=== PATIENT | male | born 1955 | race Caucasian/White ===

== ENCOUNTER 2020-01-13 17:44 | Inpatient (IN) | payer MEDICARE ==
[~2020-01-13] VITALS: Ht 182.9 cm; Wt 94.7 kg
[~2020-01-13 17:44] MED LIST: AMLO-150 PO; ASPI-515 PO; LISI-170 PO; OMEG1CAP25 PO; [UNRECOGNIZED DRUG - CODE] PO
--- NOTE | 2020-01-13 19:00 | NUR ---
THIS IS A 64 YO MALE COMING IN FOR 2ND & 3RD LEFT TOES "TURNED PURPLE YESTERDAY ALL OF A SUDDEN", SENT BY PCP FOR R/O DVT, DENIES PAIN OR INJURY. CSM INTACT, NON TENDER TO PALPATION. NO OTHER COMPLAINTS AT THIS TIME ALL MONITORING IN PLACE, VSS, NADN. CALL LIGHT IN REACH.
--- NOTE | 2020-01-13 20:02 | NUR ---
PATIENT RESTING ON GURNEY, RESPIRATIONS EVEN AND UNLABORED, VSS, NADN. AWAING MD ORDERS
--- NOTE | 2020-01-13 20:49 | NUR ---
ERP IN ROOM FOR EVAL
--- NOTE | 2020-01-13 22:00 | NUR ---
PATIENT RESTING ON GURNEY, RESPIRATIONS EVEN AND UNLABORED, VSS, NADN. AWAITING ERP ORDERS
[2020-01-13 22:25] LABS: BASOPHILS # (AUTO) 0.02 x10^3/uL (0-0.1); BASOPHILS % (AUTO) 0 % (0-1); EOSINOPHILS # (AUTO) 0.29 x10^3/uL (0-0.4); EOSINOPHILS % (AUTO) 4 % (1-7); LYMPHOCYTES # (AUTO) 2.58 x10^3/uL (1-3.4); LYMPHOCYTES % (AUTO) 32 % (22-44); MD NO; MEAN CORPUSCULAR HEMOGLOBIN 33.1 pg (27.5-34.5); MEAN CORPUSCULAR HGB CONC 33.8 g/dL (33.2-36.2); MEAN CORPUSCULAR VOLUME 97.8 fL (81-97); MEAN PLATELET VOLUME 7.3 fL (7.4-10.4); MONOCYTES # (AUTO) 0.65 x10^3/uL (0.2-0.8); MONOCYTES % (AUTO) 8 % (2-9); NEUTROPHILS # (AUTO) 4.63 x10^3/uL (1.8-6.8); NEUTROPHILS % (AUTO) 57 % (42-75); PLATELET COUNT 222 x10^3/uL (130-400); RED BLOOD COUNT 4.73 x10^6/uL (4.38-5.82); RED CELL DISTRIBUTION WIDTH 13.8 % (9.4-14.8)
[2020-01-13] MEDS ORDERED: BISACODYL 10 MG SUPP PR PRN (22:30)
[2020-01-13] MEDS ORDERED: ACETAMINOPHEN 325 MG TABLET PO PRN (22:30)
[2020-01-13] MEDS ORDERED: ONDANSETRON ODT 4 MG PO PRN (22:30)
[2020-01-13] MEDS ORDERED: POLYETHYLENE GLYCOL 17 GM PACKET PO PRN (22:30)
[2020-01-13] MEDS ORDERED: HEPARIN 5,000 UNITS/ML, 1ML IV ONE (22:30)
[2020-01-13 22:38] LABS: ALANINE AMINOTRANSFERASE 40 U/L (12-78); ALBUMIN 4.2 g/dL (3.4-5.0); ANION GAP 7 mmol/L (5-15); CALCIUM 8.7 mg/dL (8.5-10.1); CHLORIDE 110 mmol/L (98-107); CREATININE 1.14 mg/dL (0.7-1.3)
[2020-01-13 22:43] LABS: ALKALINE PHOSPHATASE 68 U/L (45-117); BILIRUBIN,TOTAL 0.9 mg/dL (0.2-1.0); TOTAL PROTEIN 7.3 g/dL (6.4-8.2); TROPONIN I < 0.015 ng/mL (0.000-0.045)
[2020-01-13 22:48] LABS: D-DIMER 0.38 ug/mlFEU (0.00-0.52); INTERNATIONAL NORMALIZED RATIO 0.94 (0.93-1.1); PROTHROMBIN TIME 9.7 Seconds (9.6-11.5)
[2020-01-13] MEDS ORDERED: HEPARIN 5,000 UNITS/ML, 1ML ONE (23:28)
[2020-01-13] MEDS ORDERED: HEPARIN 25,000 UNITS/250ML PMX 250 ML ONE (23:28)
[2020-01-13] MEDS ORDERED: OMNIPAQUE 350 MG/ML, 100ML BOTTLE ONE (23:29)
[2020-01-13] MEDS: HEPARIN 25,000 UNITS/250ML PMX 250 ML IV PRN (23:59)
--- NOTE | 2020-01-14 00:12 | NUR ---
PATIENT MOVED TO HOSPITAL BED. HEPARIN STARTED, VERIFIED WITH LATOYA HELLER.
--- NOTE | 2020-01-14 01:23 | NUR ---
PATIENT SLEEPING, RESPIRATIONS EVEN AND UNLABORED. VSMAYA Beltran. CALL LIGHT IN REACH
--- NOTE | 2020-01-14 02:20 | NUR ---
PATIENT SLEEPING, RESPIRATIONS EVEN AND UNLABORED. VSMAYA Beltran. CALL LIGHT IN REACH
--- NOTE | 2020-01-14 03:04 | NUR ---
RECEIVED REPORT FROM DIEGO KLEIN
--- NOTE | 2020-01-14 06:06 | NUR ---
pt transferred to ED room 27 without issue, pt ambulated to restroom independently, pt now resting comfortably in hospital bed watching tv, KIRK, CORYN
[2020-01-14 06:13] LABS: ANION GAP 6 mmol/L (5-15); CALCIUM 8.3 mg/dL (8.5-10.1); CHLORIDE 111 mmol/L (98-107); CREATININE 1.01 mg/dL (0.7-1.3)
[2020-01-14 06:22] LABS: BASOPHILS # (AUTO) 0.03 x10^3/uL (0-0.1); BASOPHILS % (AUTO) 1 % (0-1); EOSINOPHILS # (AUTO) 0.22 x10^3/uL (0-0.4); EOSINOPHILS % (AUTO) 3 % (1-7); LYMPHOCYTES # (AUTO) 2.22 x10^3/uL (1-3.4); LYMPHOCYTES % (AUTO) 34 % (22-44); MD NO; MEAN CORPUSCULAR HEMOGLOBIN 33.2 pg (27.5-34.5); MEAN CORPUSCULAR HGB CONC 33.8 g/dL (33.2-36.2); MEAN CORPUSCULAR VOLUME 98.4 fL (81-97); MEAN PLATELET VOLUME 7.3 fL (7.4-10.4); MONOCYTES # (AUTO) 0.43 x10^3/uL (0.2-0.8); MONOCYTES % (AUTO) 7 % (2-9); NEUTROPHILS % (AUTO) 55 % (42-75); PLATELET COUNT 194 x10^3/uL (130-400); RED BLOOD COUNT 4.62 x10^6/uL (4.38-5.82)
[2020-01-14] MEDS ORDERED: HEPARIN 5,000 UNITS/ML, 1ML ONE (06:34)
[2020-01-14] MEDS: HEPARIN 5,000 UNITS/ML, 1ML IV PRN ×2 (06:40→13:36)
[2020-01-14] MEDS: HEPARIN 25,000 UNITS/250ML PMX 250 ML IV PRN (06:41)
--- NOTE | 2020-01-14 07:10 | NUR ---
Report received from Angeles KLEIN. pt resting comfortably at this time.
--- NOTE | 2020-01-14 07:23 | NUR ---
Family at bedside, updated about POC.
--- NOTE | 2020-01-14 07:35 | NUR ---
Report given to Giovanny KLEIN
--- NOTE | 2020-01-14 08:19 | NUR ---
pt transported to admitting floor via hospital bed. pt left in no distress, heparin ggt running. Family updated regarding visiting hours.
[2020-01-14 08:39] VITALS: BP 112/65
[2020-01-14 08:58] VITALS: BP 112/65
[2020-01-14] MEDS: SENNA/DOCUSATE TABLET PO SCH (09:00)
[2020-01-14] MEDS: SODIUM CHLORIDE FLUSH 10ML SYR IVF SCH ×2 (09:48→21:00)
[2020-01-14] MEDS: OMEGA-3/FISH OIL CAPSULE PO SCH (09:48)
[2020-01-14] MEDS: AMLODIPINE 5 MG TABLET PO SCH (09:48)
[2020-01-14] MEDS: ASPIRIN 81 MG TABLET EC PO SCH (09:48)
[2020-01-14] MEDS: LISINOPRIL 20 MG TABLET PO SCH (09:49)
[2020-01-14 13:29] VITALS: BP 107/53
[2020-01-14 20:39] VITALS: BP 103/57
[2020-01-15 00:54] VITALS: BP 125/70
[2020-01-15] MEDS: HEPARIN 5,000 UNITS/ML, 1ML IV PRN (03:29)
[2020-01-15] MEDS: AMLODIPINE 5 MG TABLET PO SCH (08:41)
[2020-01-15] MEDS: OMEGA-3/FISH OIL CAPSULE PO SCH (08:41)
[2020-01-15] MEDS: LISINOPRIL 20 MG TABLET PO SCH (08:41)
[2020-01-15] MEDS: ASPIRIN 81 MG TABLET EC PO SCH (08:41)
[2020-01-15] MEDS: SENNA/DOCUSATE TABLET PO SCH (08:41)
[2020-01-15] MEDS: SODIUM CHLORIDE FLUSH 10ML SYR IVF SCH ×2 (08:45→20:13)
[2020-01-15 09:45] VITALS: BP 102/65
[2020-01-15 14:52] VITALS: BP 148/83
[2020-01-15] MEDS: HEPARIN 25,000 UNITS/250ML PMX 250 ML IV PRN (18:38)
[2020-01-15 21:05] VITALS: BP 106/63
[2020-01-16 00:24] VITALS: BP 111/71
[2020-01-16 06:21] LABS: BASOPHILS # (AUTO) 0.02 x10^3/uL (0-0.1); BASOPHILS % (AUTO) 0 % (0-1); EOSINOPHILS # (AUTO) 0.19 x10^3/uL (0-0.4); EOSINOPHILS % (AUTO) 3 % (1-7); LYMPHOCYTES % (AUTO) 29 % (22-44); MD NO; MEAN CORPUSCULAR HGB CONC 33.5 g/dL (33.2-36.2); MEAN CORPUSCULAR VOLUME 98.4 fL (81-97); MEAN PLATELET VOLUME 7.6 fL (7.4-10.4); MONOCYTES # (AUTO) 0.35 x10^3/uL (0.2-0.8); MONOCYTES % (AUTO) 6 % (2-9); NEUTROPHILS # (AUTO) 3.96 x10^3/uL (1.8-6.8); NEUTROPHILS % (AUTO) 63 % (42-75); PLATELET COUNT 194 x10^3/uL (130-400); RED BLOOD COUNT 4.91 x10^6/uL (4.38-5.82); RED CELL DISTRIBUTION WIDTH 13.5 % (9.4-14.8)
[2020-01-16 06:32] LABS: ANION GAP 6 mmol/L (5-15); CALCIUM 8.8 mg/dL (8.5-10.1); CHLORIDE 109 mmol/L (98-107); CREATININE 0.98 mg/dL (0.7-1.3)
[2020-01-16 08:01] VITALS: BP 108/62
[2020-01-16] MEDS: SODIUM CHLORIDE FLUSH 10ML SYR IVF SCH (08:45)
[2020-01-16] MEDS: OMEGA-3/FISH OIL CAPSULE PO SCH (08:46)
[2020-01-16] MEDS: AMLODIPINE 5 MG TABLET PO SCH (08:46)
[2020-01-16] MEDS: ASPIRIN 81 MG TABLET EC PO SCH (08:46)
[2020-01-16] MEDS: SENNA/DOCUSATE TABLET PO SCH (08:46)
[2020-01-16] MEDS: LISINOPRIL 20 MG TABLET PO SCH (08:46)
[2020-01-16] MEDS ORDERED: OMNIPAQUE 350 MG/ML, 150 ML BOTTLE ONE (08:47)
[2020-01-16 13:33] VITALS: BP_SYST 102; BP_SYST 85; BP_DIAS 49; BP_DIAS 66
[2020-01-16] MEDS ORDERED: CLOP75TA PO (14:51)
[2020-01-16] MEDS ORDERED: CLOPIDOGREL 75 MG TABLET PO SCH (15:00)
[2020-01-19 09:12] VITALS: BP 113/73
== END 2020-01-16 17:30 | disposition home or self-care (01) | DRG 558 ==
LOC: ED 19:16 → EDIP 22:10 → 4WST 01-14 08:11
PROVIDERS: ADMIT Family Medicine; ATTEND Family Medicine
DX: M62.272 Nontraumatic ischemic infarction of muscle, left ankle and foot (principal); D75.89 Other specified diseases of blood and blood-forming organs; F17.210 Nicotine dependence, cigarettes, uncomplicated; F41.9 Anxiety disorder, unspecified; I10 Essential (primary) hypertension; R91.1 Solitary pulmonary nodule; Z90.49 Acquired absence of other specified parts of digestive tract; Z88.8 Allergy status to other drugs, medicaments and biological substances; Z83.3 Family history of diabetes mellitus; Z82.49 Family history of ischemic heart disease and other diseases of the circulatory system; Z79.82 Long term (current) use of aspirin
CPT/HCPCS: 36415; 71045; 71275; 80048; 80053; 82607; 83605; 83880; 84484; 85025; 85379; 85520; 85610; 85730; 93005; 93306; 93970; 93978; 96374; 99285; G0378; J1644; Q9967

== ENCOUNTER → 2020-06-29 | Outpatient (CLI) | payer MEDICARE ==
[~2020-06-29] MED LIST changes: -ASPI-515 PO; +ASPI-963 PO; +CLOP75TA PO; +OMNIPAQUE 350 MG/ML, 75ML BOTTLE ONE
== END | disposition home or self-care (01) ==
LOC: CFH 08:29
PROVIDERS: ATTEND Nurse Practitioner Family
DX: R91.8 Other nonspecific abnormal finding of lung field (principal)
CPT/HCPCS: 71260; Q9967